=== PATIENT | female | born 1965 | race African-American/Black ===

== ENCOUNTER 2017-02-13 09:22 | Inpatient (IN) | payer OTHER ==
[2017-02-13 10:12] VITALS: BMI 25.2
--- NOTE | 2017-02-13 11:30 | HP ---
CIWA Score - CIWA Score Nausea/Vomitin-No Nausea/No Vomiting Muscle Tremors: 3 Anxiety: 4-Mod. Anxious/Guarded Agitation: 4-Moderately Restless Paroxysmal Sweats: 3 Orientation: 0-Oriented Tacttile Disturbances: 1-Very Mild Itch/Numbness Auditory Disturbances: 2-Mild Harshness/Frighten Visual Disturbances: 0-None Headache: 0-None Present CIWA-Ar Total Score: 17 Admission ROS S - HPI Chief Complaint: Withdrawal sx. Allergies/Adverse Reactions: Allergies Allergy/AdvReac Type Severity Reaction Status Date / Time No Known Allergies Allergy Verified 02/13/17 10:33 History of Present Illness: 51 y/o woman with a long hx. of drug and alcohol dependence is admitted for detox.Pt. has been in previous detox and rehab,denies significant sobriety. Exam Limitations: No Limitations - Ebola screening Have you traveled outside of the country in the last 21 days: No Have you had contact with anyone from an Ebola affected area: No Do you have a fever: No - Review of Systems Constitutional: Diaphoresis EENT: reports: No Symptoms Reported Respiratory: reports: No Symptoms reported Cardiac: reports: No Symptoms Reported GI: reports: Abdominal cramping : reports: No Symptoms Reported Musculoskeletal: reports: Back Pain Integumentary: reports: Sweating Neuro: reports: Tremors Endocrine: reports: No Symptoms Reported Hematology: reports: No Symptoms Reported Psychiatric: reports: No Sypmtoms Reported Other Systems: Reviewed and Negative Patient History - Patient Medical History Hx Anemia: No Hx Asthma: Yes Hx Chronic Obstructive Pulmonary Disease (COPD): No Hx Cancer: No Hx Cardiac Disorders: No Hx Congestive Heart Failure: No Hx Hypertension: No Hx Hypercholesterolemia: No Hx Pacemaker: No HX Cerebrovascular Accident: No Hx Seizures: No Hx Dementia: No Hx Diabetes: No Hx Gastrointestinal Disorders: No Hx Liver Disease: No Hx Genitourinary Disorders: No Hx Sexually Transmitted Disorders: No Hx Renal Disease (ESRD): No Hx Thyroid Disease: No Hx Human Immunodeficiency Virus (HIV): No Hx Hepatitis C: No Hx Depression: Yes Hx Suicide Attempt: No Hx Bipolar Disorder: No Hx Schizophrenia: Yes - Patient Surgical History Past Surgical History: Yes Hx Neurologic Surgery: No Hx Cataract Extraction: No Hx Cardiac Surgery: No Hx Lung Surgery: No Hx Breast Surgery: No Hx Breast Biopsy: No Hx Abdominal Surgery: No Hx Appendectomy: No Hx Cholecystectomy: No Hx Genitourinary Surgery: No Hx Section: No Hx Orthopedic Surgery: Yes (RIGHT ELBOW SX DUE TO CYST IN 2010) Anesthesia Reaction: No - PPD History Previous Implant?: Yes Documented Results: Positive w/o proof Implanted On Prior R Admission?: No Results: CXR-neg.07/29/16 PPD to be Administered?: No - Reproductive History Patient is a Female of Child Bearing Age (11 -55 yrs old): Yes Last Menstrual Period: 04/25/11 Patient : No - Smoking Cessation Smoking history: Current every day smoker Have you smoked in the past 12 months: Yes Aproximately how many cigarettes per day: 10 Hx Chewing Tobacco Use: No Initiated information on smoking cessation: Yes 'Breaking Loose' booklet given: 02/13/17 - Substance & Tx. History Hx Alcohol Use: Yes Hx Substance Use: Yes Substance Use Type: Alcohol, Cocaine Hx Substance Use Treatment: Yes (detox & rehab) - Substances Abused Crack Route: Smoking Frequency: Daily Amount used: $100 Age of first use: 17 Date of Last Use: 02/12/17 Alcohol-beer Route: Oral Frequency: Daily Amount used: 3-6 pks. Age of first use: 13 Date of Last Use: 02/12/17 Family Disease History - Family Disease History Family Disease History: Other: Father (Alcoholic), Mother (HTN) Admission Physical Exam BHS - Vital Signs Vital Signs: Vital Signs - 24 hr 02/13/17 10:10 Temperature 96.7 F L Pulse Rate 75 Respiratory 18 Rate Blood Pressure 119/80 - Physical General Appearance: Yes: Tremorous, Irritable, Sweating, Anxious HEENTM: Yes: Within Normal Limits Respiratory: Yes: Chest Non-Tender, Lungs Clear, Normal Breath Sounds Neck: Yes: Supple Breast: Yes: Breast Exam Deferred Cardiology: Yes: Regular Rhythm, Regular Rate, S1, S2 Abdominal: Yes: Normal Bowel Sounds, Non Tender, Soft Genitourinary: Yes: Within Normal Limits Back: Yes: Within Normal Limits Musculoskeletal: Yes: Within Normal Limits Extremities: Yes: Tremors Neurological: Yes: Fully Oriented, Alert Integumentary: Yes: Diaphoresis Lymphatic: Yes: Within Normal Limits - Diagnostic (1) Cocaine dependence, uncomplicated Current Visit: Yes Status: Chronic (2) History of asthma Current Visit: Yes Status: Chronic (3) Alcohol dependence with uncomplicated withdrawal Current Visit: Yes Status: Acute Cleared for Admission [facility] - Detox or Rehab [facility] Level of Care: Medically Managed Detox Regimen/Protocol: Librium [facility] Breath Alcohol Content Breath Alcohol Content: 0 Urine Pregancy Test - Result Urine Test Results: Negative- NO Line Present Urine Drug Screen - Results Drug Screen Negative: No Urine Drug Screen Results: THC-Marijuana, FELECIA-Cocaine, TCA-Tricyclic Antidepress
[2017-02-13] MEDS ORDERED: MENTHOL/PHENOL 1 EACH UD MM PRN (11:39)
[2017-02-13] MEDS ORDERED: P-EPHED 60MG/TRIPROLIDI 2.5MG TABLET PO PRN (11:39)
[2017-02-13] MEDS ORDERED: MAG HYDROX/AL HYDROX/SIMETH 30 ML UNIT-DOSE CUP PO PRN (11:39)
[2017-02-13] MEDS ORDERED: diphenhydrAMINE HCL 50 MG CAPSULE PO PRN (11:39)
[2017-02-13] MEDS ORDERED: guaiFENesin/D-METHORPHAN HB 10 ML UNIT-DOSE CUPS PO PRN (11:39)
[2017-02-13] MEDS ORDERED: chlordiazePOXIDE HCL 25 MG CAPSULE PO PRN (11:39)
[2017-02-13] MEDS ORDERED: ACETAMINOPHEN 325 MG TABLET (FP) PO PRN (11:39)
[2017-02-13] MEDS ORDERED: MAGNESIUM HYDROX 2400MG/30ML ORAL SUSPENSION 30 ML CUP PO PRN (11:39)
[2017-02-13] MEDS ORDERED: hydrOXYzine PAMOATE 50 MG CAPSULE (FP) PO PRN (11:39)
[2017-02-13] MEDS ORDERED: MAGNESIUM CITRATE 300 ML BOTTLE PO PRN (11:39)
[2017-02-13] MEDS ORDERED: LOPERAMIDE HCL 2 MG CAPSULE PO PRN (11:39)
[2017-02-13] MEDS ORDERED: NICOTINE POLACRILEX 2 MG GUM BUC PRN (11:39)
[2017-02-13] MEDS ORDERED: ALBUTEROL SO4 6.7 GM HFA INHALER IH PRN (11:42)
[2017-02-13] MEDS ORDERED: chlordiazePOXIDE HCL 25 MG CAPSULE PO ONE (11:52)
[2017-02-13] MEDS: NICOTINE 21 MG/24 HOURS TOPICAL PATCH TD SCH (13:06)
[2017-02-13 17:40] LABS: URINE APPEARANCE SLCLOUDY; URINE BILIRUBIN NEGATIVE (NEGATIVE); URINE BLOOD NEGATIVE (NEGATIVE); URINE COLOR YELLOW; URINE GLUCOSE (UA) NEGATIVE (NEGATIVE); URINE KETONE NEGATIVE (NEGATIVE); URINE LEUK ESTERASE NEGATIVE (NEGATIVE); URINE NITRITE NEGATIVE (NEGATIVE); URINE PROTEIN NEGATIVE (NEGATIVE); URINE UROBILINOGEN NEGATIVE E.U./dl (0.2-1.0)
[2017-02-13] MEDS: chlordiazePOXIDE HCL 25 MG CAPSULE PO SCH ×2 (18:24→22:45)
[2017-02-13] MEDS: THIAMINE HCL 100 MG TABLET (FP) PO SCH (22:45)
[2017-02-14] MEDS: chlordiazePOXIDE HCL 25 MG CAPSULE PO SCH ×4 (06:24→23:12)
[2017-02-14] MEDS ORDERED: cloNIDine HCL 0.1 MG TABLET PO PRN (07:04)
[2017-02-14 11:28] LABS: MCH 32.4 pg (25.7-33.7); MCHC 32.5 g/dl (32.0-36.0); MEAN CELL VOLUME 99.5 fl (80-96); MEAN PLT VOLUME 8.3 fl (7.5-11.1); PLATELET COUNT 310 K/MM3 (134-434); RDW 15.6 % (11.6-15.6); WHITE BLOOD COUNT 5.8 K/mm3 (4.0-10.0)
--- NOTE | 2017-02-14 11:29 | EKG ---
Test Reason : Blood Pressure : / mmHG Vent. Rate : 072 BPM Atrial Rate : 072 BPM P-R Int : 144 ms QRS Dur : 084 ms QT Int : 424 ms P-R-T Axes : 011 071 069 degrees QTc Int : 464 ms NORMAL SINUS RHYTHM CANNOT RULE OUT SEPTAL INFARCT , AGE UNDETERMINED NO PREVIOUS ECGS AVAILABLE Confirmed by GM MEDRANO MD ([id number]) on 02/14/2017 11:28:37 AM Referred By: Franklyn Talley Confirmed By:GM MEDRANO MD
[2017-02-14] MEDS: PRENATAL VITAMINS W/ FOLIC ACID TABLET (FP) PO SCH (11:33)
[2017-02-14] MEDS: NICOTINE 21 MG/24 HOURS TOPICAL PATCH TD SCH (11:34)
[2017-02-14 11:35] LABS: ALBUMIN 3.8 g/dl (3.4-5.0); ANION GAP 7 (8-16); CALCIUM 9.4 mg/dL (8.5-10.1); CO2 32 mmol/L (21-32)
[2017-02-14 11:41] LABS: ALK PHOS 87 U/L (45-117); BILIRUBIN,TOTAL 0.4 mg/dL (0.2-1.0); COCKROFT - GAULT 85.9265; CREATININE 0.9 mg/dL (0.55-1.02); GLUCOSE,RANDOM 130 mg/dL (74-106); SGOT/AST 15 U/L (15-37); SGPT/ALT 19 U/L (12-78); TOT PROT 7.6 g/dl (6.4-8.2)
--- NOTE | 2017-02-14 12:32 | PN ---
[facility] CIWA - CIWA Score Nausea/Vomitin-Mild Nausea/No Vomiting Muscle Tremors: 4-Moderate,w/Arms Extend Anxiety: 3 Agitation: 2 Paroxysmal Sweats: 4-Forehead w/Sweat Beads Orientation: 0-Oriented Tacttile Disturbances: 2-Mild Itch/Numbness/Burn Auditory Disturbances: 0-None Visual Disturbances: 2-Mild Sensitivity Headache: 0-None Present CIWA-Ar Total Score: 18 BHS Progress Note (SOAP) Subjective: Sweating, Diarrhea, Body Aches, Tremors. Objective: PT. A & O X 3, OBSERVED AMBULATING ON UNIT. 02/14/17 12:29 Vital Signs Temperature 97.9 F 02/14/17 12:01 Pulse Rate 91 H 02/14/17 12:01 Respiratory Rate 20 02/14/17 12:01 Blood Pressure 115/56 02/14/17 12:01 O2 Sat by Pulse Oximetry (%) Laboratory Last Values WBC 5.8 K/mm3 (4.0-10.0) 02/14/17 06:00 RBC 4.34 M/mm3 (3.60-5.2) 02/14/17 06:00 Hgb 14.1 GM/dL (10.7-15.3) D 02/14/17 06:00 Hct 43.2 % (32.4-45.2) D 02/14/17 06:00 MCV 99.5 fl (80-96) H 02/14/17 06:00 MCHC 32.5 g/dl (32.0-36.0) 02/14/17 06:00 RDW 15.6 % (11.6-15.6) 02/14/17 06:00 Plt Count 310 K/MM3 (134-434) 02/14/17 06:00 MPV 8.3 fl (7.5-11.1) 02/14/17 06:00 Sodium 142 mmol/L (136-145) 02/14/17 06:00 Potassium 3.7 mmol/L (3.5-5.1) 02/14/17 06:00 Chloride 103 mmol/L (98-107) 02/14/17 06:00 Carbon Dioxide 32 mmol/L (21-32) 02/14/17 06:00 Anion Gap 7 (8-16) L 02/14/17 06:00 BUN 7 mg/dL (7-18) D 02/14/17 06:00 Creatinine 0.9 mg/dL (0.55-1.02) 02/14/17 06:00 Creat Clearance w eGFR > 60 (>60) 02/14/17 06:00 Random Glucose 130 mg/dL (74-106) H 02/14/17 06:00 Calcium 9.4 mg/dL (8.5-10.1) 02/14/17 06:00 Total Bilirubin 0.4 mg/dL (0.2-1.0) 02/14/17 06:00 AST 15 U/L (15-37) D 02/14/17 06:00 ALT 19 U/L (12-78) D 02/14/17 06:00 Alkaline Phosphatase 87 U/L (45-117) 02/14/17 06:00 Total Protein 7.6 g/dl (6.4-8.2) 02/14/17 06:00 Albumin 3.8 g/dl (3.4-5.0) 02/14/17 06:00 Urine Color Yellow 02/13/17 14:00 Urine Appearance Slcloudy 02/13/17 14:00 Urine pH 5.0 (5.0-8.0) 02/13/17 14:00 Ur Specific [place] 1.015 (1.001-1.035) 02/13/17 14:00 Urine Protein Negative (NEGATIVE) 02/13/17 14:00 Urine Glucose (UA) Negative (NEGATIVE) 02/13/17 14:00 Urine Ketones Negative (NEGATIVE) 02/13/17 14:00 Urine Blood Negative (NEGATIVE) 02/13/17 14:00 Urine Nitrite Negative (NEGATIVE) 02/13/17 14:00 Urine Bilirubin Negative (NEGATIVE) 02/13/17 14:00 Urine Urobilinogen Negative E.U./dl (0.2-1.0) 02/13/17 14:00 Ur Leukocyte Esterase Negative (NEGATIVE) 02/13/17 14:00 RPR Titer Nonreactive (NONREACTIVE) 02/14/17 06:00 LABS NOTED. Assessment: 02/14/17 12:31 WITHDRAWAL SYMPTOMS. Plan: CONTINUE DETOX. BGM ACBK X 1 TOMORROW FOR ELEVATED ADMISSION RANDOM GLUCOSE. ADVISED PATIENT TO FOLLOW-UP WITH [facility] / REHAB MEDICAL PROVIDER AFTER DISCHARGE FROM DETOX FOR GENERAL MEDICAL ASSESSMENT AND FOR ABNORMAL ADMISSION LAB VALUES.
[2017-02-14] MEDS: GABAPENTIN 400 MG CAPSULE (FP) PO SCH ×2 (14:22→23:11)
[2017-02-14] MEDS: CYCLOBENZAPRINE HCL 10 MG TABLET (FP) PO SCH ×2 (14:23→23:12)
--- NOTE | 2017-02-14 15:51 | CONSULT ---
[facility] Psychiatric Consult - Data Date of interview: 02/14/17 Admission source: [facility] Identifying data: First admission to [facility] for this 51 y/o AA female seekig detox treatment on for alcohol,cocaine and marijuana dependence.Patient is single,a mother of two,homeless,unemployed and supported on Public Assistance. Substance Abuse History: - Smoking Cessation. Smoking history: Current every day smoker. Have you smoked in the past 12 months: Yes. Aproximately how many cigarettes per day: 10. Hx Chewing Tobacco Use: No. Initiated information on smoking cessation: Yes. 'Breaking Loose' booklet given: 02/13/17. - Substance & Tx. History. Hx Alcohol Use: Yes. Hx Substance Use: Yes. Substance Use Type : Alcohol, Cocaine. Hx Substance Use Treatment: Yes (detox & rehab). - Substances Abused. Crack. Route: Smoking. Frequency: Daily. Amount used: $100. Age of first use: 17. Date of Last Use: 02/12/17. Alcohol-beer. Route: Oral. Frequency: Daily. Amount used: 3-6 pks. Age of first use: 13. Date of Last Use: 02/12/17. Confirmed by patient. Medical History: Bronchial asthma,sciatica,carpal tunnel syndrome (bilateral) and a history of orthosurgery for excision of cyst from right elbow (2009). Psychiatric History: Patient is a poor and irritable historian.She does,however, report a history of psychiatric hospitalizations (able to recall one admission to [facility]).Diagnosed with Schizophrenia.Prescribed haldol 10 mg po bid + cogentin (dose not recalled) + prozac 20 mg/day + wellbutrin XL 150 mg/ day.Ms Perez reports that she does not have any contact with psychiatrists.Patient uses emergency room settings/psychiatric wards as channels to obtain medications.She denies history of suicide attempts. Physical/Sexual Abuse/Trauma History: Patient denies. Additional Comment: Urine Drug Screen Results: THC-Marijuana, FELECIA-Cocaine, TCA- Tricyclic Antidepressants.Noted. Mental Status Exam - Mental Status Exam Alert and Oriented to: Time, Place, Person Cognitive Function: Good Patient Appearance: Well Groomed Mood: Withdrawn, Anxious, Apprehensive, Irritable Affect: Mood Congruent Patient Behavior: Passive, Fatigued, Guarded Speech Pattern: Clear (non-spontaneous) Voice Loudness: Normal Thought Process: Goal Oriented Thought Disorder: Bizarre Hallucinations: Denies Suicidal Ideation: Denies Homicidal Ideation: Denies Insight/Judgement: Poor Sleep: Fair Appetite: Good Muscle strength/Tone: Normal Gait/Station: Normal Psychiatric Findings - Problem List ([place] 1, 2,3) (1) Alcohol dependence with uncomplicated withdrawal Current Visit: Yes Status: Acute (2) Cocaine dependence, uncomplicated Current Visit: Yes Status: Acute (3) Nicotine dependence Current Visit: Yes Status: Acute (4) Substance induced mood disorder Current Visit: Yes Status: Acute (5) Schizophrenia Current Visit: Yes Status: Chronic Qualifiers: Schizophrenia type: unspecified Qualified Code(s): F20.9 - Schizophrenia, unspecified (6) History of asthma Current Visit: Yes Status: Chronic (7) Cannabis abuse Current Visit: Yes Status: Acute - Initial Treatment Plan Initial Treatment Plan: Psychoeducation.Detoxification in progress.Medications : haldol 5 mg po bid (reduced) + cogentin 1 mg po bid + wellbutrin XL 150 mg po daily + prozac 10 mg po daily (reduced).Side effects/benefits of each drug discussed with patient.Made aware of risk for abnormal involuntary movements, EPS (dystonias,dyskinesias,akathisia,akinesia),NMS (neuroleptic malignant syndrome),cardiac adverse events from the use of haldol,seizures (bupropion), anticholinergic manifestations from cogentin (dry mouth,constipation,blurred vision,urinary hesitancy/retention),suicidal ideation and sexual dysfunction ( prozac).As per patient,no prior history of adverse effects from this regimen.Eager to resume her medications.Agreement (verbal) secured from patient.Observation.Medications were verified by checking recent pharmacy claims.Noted filled scripts for all these medications @ [facility] on 01/21.
[2017-02-14] MEDS: THIAMINE HCL 100 MG TABLET (FP) PO SCH (23:11)
[2017-02-14] MEDS: BENZTROPINE MESYLATE 1 MG TABLET (FP) PO SCH (23:12)
[2017-02-14] MEDS: HALOPERIDOL 5 MG TABLET (FP) PO SCH (23:12)
[2017-02-15] MEDS: chlordiazePOXIDE HCL 25 MG CAPSULE PO SCH ×2 (07:33→10:59)
[2017-02-15] MEDS: GABAPENTIN 400 MG CAPSULE (FP) PO SCH ×3 (07:34→22:48)
[2017-02-15] MEDS: CYCLOBENZAPRINE HCL 10 MG TABLET (FP) PO SCH ×3 (07:34→22:48)
[2017-02-15] MEDS: NICOTINE 21 MG/24 HOURS TOPICAL PATCH TD SCH (10:59)
[2017-02-15] MEDS: HALOPERIDOL 5 MG TABLET (FP) PO SCH ×2 (10:59→22:48)
[2017-02-15] MEDS: BENZTROPINE MESYLATE 1 MG TABLET (FP) PO SCH ×2 (10:59→22:48)
[2017-02-15] MEDS: PRENATAL VITAMINS W/ FOLIC ACID TABLET (FP) PO SCH (10:59)
[2017-02-15] MEDS: FLUoxetine HCL 10 MG TABLET PO SCH (13:50)
[2017-02-15] MEDS: IBUPROFEN 400 MG TABLET (FP) PO PRN (13:51)
--- NOTE | 2017-02-15 18:30 | PN ---
[facility] CIWA - CIWA Score Nausea/Vomitin-Mild Nausea/No Vomiting Muscle Tremors: 4-Moderate,w/Arms Extend Anxiety: 4-Mod. Anxious/Guarded Agitation: 2 Paroxysmal Sweats: 3 Orientation: 1-Uncertain about Date Tacttile Disturbances: 2-Mild Itch/Numbness/Burn Auditory Disturbances: 1-Very Mild Visual Disturbances: 0-None Headache: 0-None Present CIWA-Ar Total Score: 18 BHS Progress Note (SOAP) Subjective: Tremors, Interrupted Sleep, Body Aches, Sweating. Objective: PT. A & O X 2 (DISORIENTED ABOUT DAY / DATE). PT. OBSERVED AMBULATING ON UNIT. 02/15/17 18:26 Vital Signs Temperature 97.9 F 02/15/17 14:38 Pulse Rate 104 H 02/15/17 14:38 Respiratory Rate 20 02/15/17 14:38 Blood Pressure 129/83 02/15/17 14:38 O2 Sat by Pulse Oximetry (%) Laboratory Last Values WBC 5.8 K/mm3 (4.0-10.0) 02/14/17 06:00 RBC 4.34 M/mm3 (3.60-5.2) 02/14/17 06:00 Hgb 14.1 GM/dL (10.7-15.3) D 02/14/17 06:00 Hct 43.2 % (32.4-45.2) D 02/14/17 06:00 MCV 99.5 fl (80-96) H 02/14/17 06:00 MCHC 32.5 g/dl (32.0-36.0) 02/14/17 06:00 RDW 15.6 % (11.6-15.6) 02/14/17 06:00 Plt Count 310 K/MM3 (134-434) 02/14/17 06:00 MPV 8.3 fl (7.5-11.1) 02/14/17 06:00 Sodium 142 mmol/L (136-145) 02/14/17 06:00 Potassium 3.7 mmol/L (3.5-5.1) 02/14/17 06:00 Chloride 103 mmol/L (98-107) 02/14/17 06:00 Carbon Dioxide 32 mmol/L (21-32) 02/14/17 06:00 Anion Gap 7 (8-16) L 02/14/17 06:00 BUN 7 mg/dL (7-18) D 02/14/17 06:00 Creatinine 0.9 mg/dL (0.55-1.02) 02/14/17 06:00 Creat Clearance w eGFR > 60 (>60) 02/14/17 06:00 POC Glucometer 99 UNITS (()) 02/15/17 06:52 Random Glucose 130 mg/dL (74-106) H 02/14/17 06:00 Calcium 9.4 mg/dL (8.5-10.1) 02/14/17 06:00 Total Bilirubin 0.4 mg/dL (0.2-1.0) 02/14/17 06:00 AST 15 U/L (15-37) D 02/14/17 06:00 ALT 19 U/L (12-78) D 02/14/17 06:00 Alkaline Phosphatase 87 U/L (45-117) 02/14/17 06:00 Total Protein 7.6 g/dl (6.4-8.2) 02/14/17 06:00 Albumin 3.8 g/dl (3.4-5.0) 02/14/17 06:00 Urine Color Yellow 02/13/17 14:00 Urine Appearance Slcloudy 02/13/17 14:00 Urine pH 5.0 (5.0-8.0) 02/13/17 14:00 Ur Specific [place] 1.015 (1.001-1.035) 02/13/17 14:00 Urine Protein Negative (NEGATIVE) 02/13/17 14:00 Urine Glucose (UA) Negative (NEGATIVE) 02/13/17 14:00 Urine Ketones Negative (NEGATIVE) 02/13/17 14:00 Urine Blood Negative (NEGATIVE) 02/13/17 14:00 Urine Nitrite Negative (NEGATIVE) 02/13/17 14:00 Urine Bilirubin Negative (NEGATIVE) 02/13/17 14:00 Urine Urobilinogen Negative E.U./dl (0.2-1.0) 02/13/17 14:00 Ur Leukocyte Esterase Negative (NEGATIVE) 02/13/17 14:00 RPR Titer Nonreactive (NONREACTIVE) 02/14/17 06:00 LABS NOTED. 04/22/17 18:30 Assessment: 02/15/17 18:30 WITHDRAWAL SYMPTOMS. Plan: CONTINUE DETOX. ADVISED PATIENT TO FOLLOW-UP WITH [facility] / REHAB MEDICAL PROVIDER AFTER DISCHARGE FROM DETOX FOR GENERAL MEDICAL ASSESSMENT AND FOR ABNORMAL ADMISSION LAB VALUES.
[2017-02-15] MEDS: chlordiazePOXIDE 5 MG CAPSULE PO SCH ×2 (19:02→22:49)
[2017-02-15] MEDS: THIAMINE HCL 100 MG TABLET (FP) PO SCH (22:48)
[2017-02-16] MEDS: CYCLOBENZAPRINE HCL 10 MG TABLET (FP) PO SCH ×3 (06:18→22:23)
[2017-02-16] MEDS: chlordiazePOXIDE 5 MG CAPSULE PO SCH ×2 (06:19→10:38)
[2017-02-16] MEDS: GABAPENTIN 400 MG CAPSULE (FP) PO SCH ×3 (06:21→22:23)
--- NOTE | 2017-02-16 10:04 | PN ---
BHS Progress Note (SOAP) Subjective: Sweating,interrupted sleep,restless Objective: 02/16/17 10:03 Vital Signs - 8 hr 02/16/17 02/16/17 03:30 06:00 Temperature 96.8 F L Pulse Rate 62 Respiratory 18 16 Rate Blood Pressure 111/77 Laboratory Tests 02/13/17 02/14/17 02/14/17 14:00 06:00 06:00 WBC 5.8 RBC 4.34 Hgb 14.1 D Hct 43.2 D MCV 99.5 H MCHC 32.5 RDW 15.6 Plt Count 310 MPV 8.3 Sodium 142 Potassium 3.7 Chloride 103 Carbon Dioxide 32 Anion Gap 7 L BUN 7 D Creatinine 0.9 Creat Clearance w eGFR > 60 POC Glucometer Random Glucose 130 H Calcium 9.4 Total Bilirubin 0.4 AST 15 D ALT 19 D Alkaline Phosphatase 87 Total Protein 7.6 Albumin 3.8 Urine Color Yellow Urine Appearance Slcloudy Urine pH 5.0 Ur Specific [place] 1.015 Urine Protein Negative Urine Glucose (UA) Negative Urine Ketones Negative Urine Blood Negative Urine Nitrite Negative Urine Bilirubin Negative Urine Urobilinogen Negative Ur Leukocyte Esterase Negative RPR Titer 02/14/17 02/15/17 02/16/17 06:00 06:52 06:55 WBC RBC Hgb Hct MCV MCHC RDW Plt Count MPV Sodium Potassium Chloride Carbon Dioxide Anion Gap BUN Creatinine Creat Clearance w eGFR POC Glucometer 99 125 Random Glucose Calcium Total Bilirubin AST ALT Alkaline Phosphatase Total Protein Albumin Urine Color Urine Appearance Urine pH Ur Specific [place] Urine Protein Urine Glucose (UA) Urine Ketones Urine Blood Urine Nitrite Urine Bilirubin Urine Urobilinogen Ur Leukocyte Esterase RPR Titer Nonreactive labs noted Assessment: 02/16/17 10:03 Withdrawal sx. Plan: Continue detox
[2017-02-16] MEDS: PRENATAL VITAMINS W/ FOLIC ACID TABLET (FP) PO SCH (10:37)
[2017-02-16] MEDS: NICOTINE 21 MG/24 HOURS TOPICAL PATCH TD SCH (10:38)
[2017-02-16] MEDS: BENZTROPINE MESYLATE 1 MG TABLET (FP) PO SCH ×2 (10:38→22:23)
[2017-02-16] MEDS: FLUoxetine HCL 10 MG TABLET PO SCH (10:38)
[2017-02-16] MEDS: HALOPERIDOL 5 MG TABLET (FP) PO SCH ×2 (10:38→22:23)
[2017-02-16] MEDS: IBUPROFEN 400 MG TABLET (FP) PO PRN (17:09)
[2017-02-16] MEDS: chlordiazePOXIDE HCL 10 MG CAPSULE PO SCH ×2 (17:09→22:23)
[2017-02-16] MEDS: THIAMINE HCL 100 MG TABLET (FP) PO SCH (22:23)
[2017-02-17] MEDS: chlordiazePOXIDE HCL 10 MG CAPSULE PO SCH ×2 (07:08→10:00)
[2017-02-17] MEDS: CYCLOBENZAPRINE HCL 10 MG TABLET (FP) PO SCH (07:08)
[2017-02-17] MEDS: GABAPENTIN 400 MG CAPSULE (FP) PO SCH (07:08)
[2017-02-17 09:42] VITALS: BP 106/59; PULSE 73; TEMP 98.2
--- NOTE | 2017-02-17 09:44 | DS ---
[facility] Detox Discharge Summary Admission Date: 02/13/17 Discharge Date: 02/17/17 - History Present History: Alcohol Dependence, Cannabis Dependence, Cocaine Dependence - Physical Exam Results Vital Signs: Vital Signs Temperature 98.0 F 02/17/17 06:22 Pulse Rate 65 02/17/17 06:22 Respiratory Rate 16 02/17/17 06:22 Blood Pressure 105/61 02/17/17 06:22 O2 Sat by Pulse Oximetry (%) - Treatment Hospital Course: Detox Protocol Followed, Detoxed Safely, Responded well, Discharged Condition Good, Rehab Referral Accepted - Medication Discharge Medications: Ambulatory Orders Albuterol Sulfate Inhaler - [Ventolin Hfa Inhaler -] 2 inh PO Q4H PRN 07/26/16 Fluoxetine HCl [Prozac -] 20 mg PO DAILY #30 08/08/16 Benztropine Mesylate [Cogentin -] 1 mg PO BID 02/13/17 Bupropion HCl [Wellbutrin Xl -] 150 mg PO DAILY 02/13/17 Cyclobenzaprine HCl [Flexeril -] 10 mg PO TID 02/13/17 Gabapentin [Neurontin] 600 mg PO TID 02/13/17 Haloperidol [Haldol -] 10 mg PO BID 02/13/17 - Diagnosis (1) Alcohol dependence with uncomplicated withdrawal Current Visit: Yes Status: Chronic (2) Cannabis abuse Current Visit: Yes Status: Chronic (3) Cocaine dependence, uncomplicated Current Visit: Yes Status: Chronic (4) Nicotine dependence Current Visit: Yes Status: Chronic Qualifiers: Nicotine product type: cigarettes Substance use status: uncomplicated Qualified Code(s): F17.210 - Nicotine dependence, cigarettes, uncomplicated (5) Substance induced mood disorder Current Visit: Yes Status: Chronic (6) History of asthma Current Visit: Yes Status: Chronic (7) Schizophrenia Current Visit: Yes Status: Chronic Qualifiers: Schizophrenia type: unspecified Qualified Code(s): F20.9 - Schizophrenia, unspecified (8) Mouth sore Current Visit: No Status: Acute (9) Tinea pedis Current Visit: No Status: Resolved Qualifiers: Laterality: bilateral Qualified Code(s): B35.3 - Tinea pedis - AMA Did Patient Leave Against Medical Advice: No
[2017-02-17] MEDS: BENZTROPINE MESYLATE 1 MG TABLET (FP) PO SCH (09:58)
[2017-02-17] MEDS: PRENATAL VITAMINS W/ FOLIC ACID TABLET (FP) PO SCH (09:58)
[2017-02-17] MEDS: HALOPERIDOL 5 MG TABLET (FP) PO SCH (09:58)
[2017-02-17] MEDS: NICOTINE 21 MG/24 HOURS TOPICAL PATCH TD SCH (10:00)
== END 2017-02-17 10:12 | disposition home or self-care (01) | DRG 774 ==
LOC: YASAS 09:22 → Y6N 11:31
PROVIDERS: ADMIT Internal Medicine Addiction Medicine; ATTEND Internal Medicine Addiction Medicine
PROC: HZ2ZZZZ Detoxification Services for Substance Abuse Treatment (ICD-10-PCS; principal; 2017-02-13)
DX: F10.230 Alcohol dependence with withdrawal, uncomplicated (principal); F14.20 Cocaine dependence, uncomplicated; F12.20 Cannabis dependence, uncomplicated; F17.210 Nicotine dependence, cigarettes, uncomplicated; F19.24 Other psychoactive substance dependence with psychoactive substance-induced mood disorder; F20.9 Schizophrenia, unspecified; B35.3 Tinea pedis; K13.79 Other lesions of oral mucosa; J45.909 Unspecified asthma, uncomplicated; M54.30 Sciatica, unspecified side; G56.03 Carpal tunnel syndrome, bilateral upper limbs
CPT/HCPCS: 36415; 80053; 81003; 85027; 86593; 93005; 93010